=== PATIENT | female | born 1995 | race African-American/Black ===

== ENCOUNTER 2021-05-02 12:19 | Outpatient (CLI) | payer BC, MEDICAID, SELFPAY ==
--- NOTE | ~2021-05-02 | US_ITS ---
US OB follow up DATE: 05/02/2021 16:40 INDICATION: Inconclusive viability on clinical examination TECHNIQUE: Real-time imaging and Doppler analysis COMPARISON: None FINDINGS: Live fontana intrauterine gestation gestation, fetus in variable position, transverse lie . Fundal placenta. Subjectively normal amount of amniotic fluid. heart rate of 135 bpm. Biparietal diameter 4.26 cm; 18 weeks 6 days Head circumference 15.99 cm; 18 weeks 6 days Abdominal circumference 13.88 cm; 19 weeks 2 days Femur length 2.86 cm; 18 weeks 5 days Composite age by Hadlock formula is 19 weeks +/- 1 week 2 days. MAHI: 09/26/2021 Estimated weight is 269.45 +/- 40.42 g Head circumference/abdominal circumference 1.15, within normal range of 1.09-a 1.26 Femur length/head circumference 17.85, within normal range of 16.10-18.30 IMPRESSION: Composite age is 19 weeks +/- 1 week 2 days; MAHI 09/26/2021 Reviewed, dictated and finalized at [facility]. Reviewed, dictated and finalized at location [facility].
[2021-05-02 13:00] LABS: Basophils Percent Auto 0.2 % (0.2-1.2); Eosinophils Percent Auto 0.7 % (0-4.4); Hematocrit 28.9 % (37.0-47.0); Hemoglobin 9.3 g/dL (12.0-15.0); Immature Granulocyte Absolute 0.02 K/mm3 (0.00-0.031); Immature Granulocyte Percent A 0.4 % (0-0.5); Lymphocytes Absolute Auto 0.73 K/mm3 (0.9-3.2); Lymphocytes Percent Auto 13.3 % (18.3-44.2); Mean Corpuscular HGB Conc 32.2 g/dl (32-36); Mean Corpuscular Hemoglobin 26.3 pg (26-34); Mean Corpuscular Volume 81.9 fl (80-100); Mean Platelet Volume 10.3 fl (7.4-10.4); Monocytes Absolute Auto 0.5 K/mm3 (0.1-0.6); Monocytes Percent Auto 8.4 % (2.6-8.5); Neutrophils Absolute Auto 4.2 K/mm3 (1.3-6.7); Platelet Count Result 242 k/mm3 (150-375); Red Blood Count 3.53 M/mm3 (4.2-5.4); Red Cell Distribution Width 14.3 % (11.5-14.5); White Blood Count 5.5 K/mm3 (4.5-10.0)
[2021-05-02 14:03] LABS: Vitamin D 25 Hydroxy 23.2 ng/mL
[2021-05-02 14:28] LABS: Hepatitis B Surface Antigen Negative (Negative)
[2021-05-02 14:36] LABS: Hepatitis C Virus Antibody Negative (Negative)
[2021-05-02 17:34] LABS: Rubella IgG Antibody > 120.0 IU/ML
[2021-05-02 19:03] LABS: HIV 1/2 Ab P24 Ag Result Negative (Negative)
[2021-05-06 17:17] LABS: Varicella IgG Antibody >4000.00 Index (>=165.00)
[2021-05-06 17:59] LABS: Hematocrit 30.6 % (35.0-45.0); Hemoglobin 9.5 g/dL (11.7-15.5); MCH 26.7 pg (27.0-33.0); RDW 15.9 % (11.0-15.0); Red Blood Cell Count 3.56 Mill/uL (3.80-5.10)
[2021-05-08 09:20] LABS: Rapid Plasma Reagin Non-Reactive (NonReactive)
[2021-05-10 14:13] LABS: CF Result NEGATIVE (NEGATIVE)
== END 2021-05-02 12:20 | disposition home or self-care (01) ==
PROVIDERS: Visit Provider Student in an Organized Health Care Education/Training Program
DX: Z36.89 Encounter for other specified antenatal screening (principal); Z3A.19 19 weeks gestation of pregnancy
CPT/HCPCS: 36415; 76816; 81220; 81243; 82306; 83021; 84443; 85025; 86592; 86703; 86762; 86787; 86803; 86850; 86880; 86900; 86901; 86902; 87340; G0432

== ENCOUNTER 2021-06-27 13:59 | Outpatient (CLI) | payer BC, MEDICAID, SELFPAY ==
[2021-06-27 15:24] LABS: Basophils Percent Auto 0.2 % (0.2-1.2); Eosinophils Percent Auto 0.8 % (0-4.4); Hematocrit 28.9 % (37.0-47.0); Hemoglobin 8.9 g/dL (12.0-15.0); Immature Granulocyte Absolute 0.02 K/mm3 (0.00-0.031); Immature Granulocyte Percent A 0.4 % (0-0.5); Lymphocytes Absolute Auto 0.73 K/mm3 (0.9-3.2); Lymphocytes Percent Auto 15.3 % (18.3-44.2); Mean Corpuscular HGB Conc 30.8 g/dl (32-36); Mean Corpuscular Hemoglobin 25.5 pg (26-34); Mean Corpuscular Volume 82.8 fl (80-100); Mean Platelet Volume 9.7 fl (7.4-10.4); Monocytes Absolute Auto 0.5 K/mm3 (0.1-0.6); Monocytes Percent Auto 10.3 % (2.6-8.5); Neutrophils Absolute Auto 3.5 K/mm3 (1.3-6.7); Platelet Count Result 194 k/mm3 (150-375); Red Blood Count 3.49 M/mm3 (4.2-5.4); Red Cell Distribution Width 14.4 % (11.5-14.5); White Blood Count 4.8 K/mm3 (4.5-10.0)
[2021-06-27 15:46] LABS: Glucose 1 Hour PP 50gm Dose 75 mg/dL
== END 2021-06-27 14:00 | disposition home or self-care (01) ==
PROVIDERS: Visit Provider Student in an Organized Health Care Education/Training Program
DX: Z34.90 Encounter for supervision of normal pregnancy, unspecified, unspecified trimester (principal)
CPT/HCPCS: 36415; 82947; 85025

== ENCOUNTER 2021-08-01 14:45 | Outpatient (CLI) | payer BC, MEDICAID, SELFPAY ==
[2021-08-01 15:15] LABS: Basophils Percent Auto 0.2 % (0.2-1.2); Eosinophils Absolute Auto 0.1 K/mm3 (0-0.3); Eosinophils Percent Auto 1.4 % (0-4.4); Hematocrit 29.6 % (37.0-47.0); Hemoglobin 9.3 g/dL (12.0-15.0); Immature Granulocyte Absolute 0.03 K/mm3 (0.00-0.031); Immature Granulocyte Percent A 0.7 % (0-0.5); Lymphocytes Absolute Auto 0.68 K/mm3 (0.9-3.2); Lymphocytes Percent Auto 16.2 % (18.3-44.2); Mean Corpuscular HGB Conc 31.4 g/dl (32-36); Mean Corpuscular Hemoglobin 25.7 pg (26-34); Mean Corpuscular Volume 81.8 fl (80-100); Mean Platelet Volume 10.2 fl (7.4-10.4); Monocytes Absolute Auto 0.4 K/mm3 (0.1-0.6); Monocytes Percent Auto 9.1 % (2.6-8.5); Neutrophils Percent Auto 72.4 % (45.5-73.1); Platelet Count Result 210 k/mm3 (150-375); Red Blood Count 3.62 M/mm3 (4.2-5.4); Red Cell Distribution Width 19.2 % (11.5-14.5); White Blood Count 4.2 K/mm3 (4.5-10.0)
[2021-08-01 16:06] LABS: HIV 1/2 Ab P24 Ag Result Negative (Negative)
[2021-08-04 06:11] LABS: Rapid Plasma Reagin Non-Reactive (NonReactive)
== END 2021-08-01 14:46 | disposition home or self-care (01) ==
LOC: ANHLAB 14:47
PROVIDERS: Visit Provider Student in an Organized Health Care Education/Training Program
DX: Z34.90 Encounter for supervision of normal pregnancy, unspecified, unspecified trimester (principal)
CPT/HCPCS: 36415; 85025; 86592; 86703; G0432

== ENCOUNTER 2021-09-02 16:30 | Outpatient (RCR) | payer MEDICAID, SELFPAY ==
--- NOTE | 2021-08-20 09:19 | PTOPEVAL ---
PHYSICAL THERAPY EVALUATION AND PLAN OF CARE Thank you for referring Glory Mackenzie to [facility] The patient is scheduled to be seen for therapy? 1x/week for 3 weeks. Please review, sign, date and return this plan of care BERTHA. I agree with and certify that the following plan of care is medically necessary. Referring Physician Date Attending Provider: Anton Stuart MD Evaluation Diagnosis right peroneal tendonitis Onset 5weeks Subjective Information Reports that pain started Query Text:As Reported By Patient/ about a month ago. She is Family having pain in the right ankle (points to lateral malleolus and peroneal tendons) and states sometimes the heel. 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 States that working for several hours can cause increase pain in the ankle. Self Report Pain Assessment Right Ankle(s) Reported Pain Level 4 Pain Description Aching,Tightness Lowest Pain Intensity 2 Greatest Pain Intensity 8 Pain Aggravating Factors Stair Climbing,Walking,Weight Bearing/Standing Other Pain Aggravating Factors going down stairs Pain Score Pain Score 4: Self Report Interventions Used Interventions Used By Clinicians Exercise,Joint Mobilization Pain Relief Interventions Used By Inactivity/Rest Patient Lower Extremity Range of Motion Ankle/Foot Range of Motion Left Ankle Dorsiflexion With Knee Flexed 10 Range of Motion - Active Ankle Eversion Range of Motion - Active 20 Ankle Inversion Range of Motion - Active 40 Right Ankle Dorsiflexion With Knee Flexed -1 Range of Motion - Active Ankle Eversion Range of Motion - Active 15 Ankle Inversion Range of Motion - Active 20 Lower Extremity Muscle Strength Testing Ankle Strength Right Ankle Dorsiflexion Strength 4- Good - Ankle Eversion Strength 3+ Fair + Ankle Inversion Strength 3+ Fair + Ankle Strength Comments pain to isometric MMT Palpation Assessment Palpation Palpation decreased mobility of talo- crural joint Stair Climbing Assessment Stair Climbing Assessment Stair Climbing Assistive Devices Railings Technique Alternating Steps,Single Steps Stair Climbing Direction Both Up and Down Stair Climbing Comments educated and worked together on walking down the stairs leading with right foot to
--- NOTE | 2021-08-26 15:09 | PCPTNOTE ---
Patient did not show for appointment this date. Called and left voicemail with future visit time and date.
--- NOTE | 2021-09-15 11:18 | PCPTNOTE ---
Patient called & cancelled scheduled appointment this date. She does not plan to reschedule because she is going to be induced into labor this week.
--- NOTE | 2021-09-15 11:19 | PCPTNOTE ---
PHYSICAL THERAPY DISCHARGE NOTE Attending Provider: Anton Stuart MD Patient:Glory Mackenzie Date of :1995 Patient has not returned for any further treatments since 09/02/2021, therefore will be discharged at this time. Patient?s initial visit was on 08/20/2021 and had a total of 2 visits. She called and stated that she will not reschedule her appointments as she is going to be having her baby soon. Thank you for referring this patient to [facility]. Please review, sign, date and return this discharge summary BERTHA. I have been updated about the patient's current status and I agree with discharge from the above service at this time. Referring Physician Date
== END 2021-09-16 08:50 | disposition home or self-care (01) ==
LOC: ANHPT 16:30
PROVIDERS: PCP Student in an Organized Health Care Education/Training Program; Visit Provider Orthopaedic Surgery
DX: M76.71 Peroneal tendinitis, right leg (principal)
CPT/HCPCS: 97110; 97140; 97161

== ENCOUNTER 2021-09-17 15:23 | Outpatient (CLI) | payer MEDICAID, SELFPAY ==
[2021-09-17 15:59] LABS: Hemoglobin 10.6 g/dL (12.0-15.0); Mean Corpuscular HGB Conc 33.1 g/dl (32-36); Mean Corpuscular Volume 81.6 fl (80-100); Mean Platelet Volume 9.4 fl (7.4-10.4); Platelet Count Result 171 k/mm3 (150-375); Red Blood Count 3.92 M/mm3 (4.2-5.4); Red Cell Distribution Width 17.9 % (11.5-14.5); White Blood Count 4.2 K/mm3 (4.5-10.0)
[2021-09-18 13:59] LABS: Rapid Plasma Reagin Non-Reactive (NonReactive)
== END 2021-09-17 15:24 | disposition home or self-care (01) ==
LOC: ANHLAB 15:27
PROVIDERS: Visit Provider Student in an Organized Health Care Education/Training Program
DX: O34.211 Maternal care for low transverse scar from previous cesarean delivery (principal); Z3A.39 39 weeks gestation of pregnancy
CPT/HCPCS: 36415; 81479; 85027; 86592; 86850; 86870; 86880; 86900; 86901; 86902; 86905; 86970; 86971; 86978

== ENCOUNTER 2021-09-18 07:15 | Inpatient (IN) | payer BC, SELFPAY ==
--- NOTE | 2021-08-25 14:12 | PC.NURSE ---
PATIENT STATES SHE IS A REPEAT C/S ON EITHER 09/18/21 OR 09/19/21 WITH TUBAL LIGATION. INFORMED PATIENT DR TAPIA HAS NOT SCHEDULED HER C/S YET. PATIENT STATES DR TAPIA WAS GOING TO LET HER KNOW THIS WEEK WHEN SHE SEES HER ON THE DATE AND TIME OF HER C/S PATIENT REQUSITION FOR PRE-OP LAB DRAW AND PER-OP TEACHING DONE ON WHEN TO GET LABS DRAWN. CALLED OFFICE FOR COPY OF IDPA CNSENT FOR TUBAL LIGATION
[2021-09-18] VITALS (57 sets, daily range): BP systolic 74–224; BP diastolic 42–202; PULSE 57–207; RESP 12–18; TEMP 36.2–36.6; O2SAT 95–100; BMI 26.9
[2021-09-18] MEDS: LACTATED RINGERS 1,000 ML 125 ML IV CONT (07:58)
--- NOTE | 2021-09-18 08:03 | LDADM ---
This patient, Glory Mackenzie, was admitted to Labor/Delivery/Recovery 119 on 09/18/21 at 07:15. Plans for labor, pain management and were discussed with patient. Patient/family oriented to hospital policies and general routines including ID bracelet, bed and alarms, visiting hours, pain management, procedures, bathroom and other care routines, personal items, smoking policy, room service/diet and guest tray routines, infant security routines, and visiting hours. Patient/Family are encouraged to report perceived risks to care and to ask questions if they do not understand what they are told or what they should do. See OBIX for further documentation.
--- NOTE | 2021-09-18 08:07 | P.PNAN_ITS ---
Anes - Initial Pre Proc Eval Procedure: Operation Date: 09/18/21 09:00 Proposed Procedures p Repeat Section with Bilateral Tubal Ligation - Karen Mckee MD Date/Time: 09/18/21 08:07 Surgeon: Karen Mckee MD Pre Op Diagnosis: CSection Patient Data Age: 26 Gender: F Height: 1.59 m Weight: 68 kg Last Vital Signs Pulse 105 H 09/18/21 07:59 BP 108/60 09/18/21 07:59 Allergies Allergy/AdvReac Type Severity Reaction Status Date / Time No Known Allergies Allergy Verified 09/09/21 14:11 Home Medications Medication Instructions Recorded Confirmed Type prenat.vits,denzel,drd-taod-ketys 1 tablet PO DAILY 03/14/21 09/03/21 History ferrous sulfate 325 mg (65 mg 325 mg PO DAILY #30 tablet 05/02/21 09/03/21 Rx iron) tablet Patient hx anesthesia problems: none Family hx anesthesia problems: none Results Review: All pre-operative results and documents have been reviewed as part of the pre-operative evaluation. [facility] Past Medical History Medical History Anemia Anemia affecting Encounter for supervision of normal first in second trimester Encounter for supervision of normal in multigravida in third trimester Peroneal tendonitis Right ankle pain Vaginal bleeding during , antepartum Surgical History Surgical History History of History of elective 2015 Family History Family History Father Hypertension Mother Throat cancer Grandparent Throat cancer Other Patient's mother is Social History Social History Smoking status: Never smoker Alcohol intake: never Substance use: never Spiritual care concerns: No Anes - Eval Final PreProcedure Day of Procedure 09/18/21 08:07 Patient weight: overweight Heart: regular rate and rhythm Lungs: clear to auscultation Airway: Mallampati scale class II Neurological: alert and oriented Last oral intake: >/= 8 hours ASA classification: II Emergent: no Anesthetic plan: proceed Anesthesia type and monitoring: regional spinal and standard monitoring Results Review: All pre-operative results and documents have been reviewed as part of the pre-operative evaluation. Informed Consent: The patient's anesthetic plan and its attendant risks and benefits were discussed with the patient/family/POA. Questions were solicited and answers provided to the satisfaction of the patient/family/POA.
--- NOTE | 2021-09-18 08:32 | PM.IMHP ---
H&P: HPI History of Present Illness Date/Time: 09/18/21 08:32 Patient is a LMP 12/19/20 currently 39w gestation with MAHI 09/25/21 who presents to L&D for a scheduled repeat section. She is dated by LMP consistent with early outside US. She has a history of C/S x 2. In general, patient reports feeling well today. Denies any vaginal bleeding, leakage of fluid, or contractions. Reports good movement. Patient also desires permanent sterilization. She has been counseled regarding alternative methods of contraception and declines all other options. Chief Complaint: Intrauterine at 39w Previous section x 2 Multiparity, desires permanent sterilization Review of Systems Review of Systems: All systems reviewed & are unremarkable except as noted in HPI and below Constitutional: Constitutional: Reports as per HPI, Reports no additional constitutional complaints, Denies chills, Denies fever(s), Denies headache(s) and Denies night sweats Eyes: Eyes: Reports as per HPI and Reports no additional eye complaints ENT: Reports system reviewed and no additional complaints, except as documented, Reports as per HPI, Reports Normal hearing present and Denies headache(s) Cardiovascular: Cardiovascular: Reports as per HPI, Reports no additional cardiovascular complaints, Denies chest pain and Denies dyspnea Respiratory: Respiratory: Reports as per HPI, Reports no additional respiratory complaints, Denies cough and Denies dyspnea Gastrointestinal: Gastrointestinal: Reports as per HPI, Reports no additional gastrointestinal complaints, Denies abdominal pain, Denies change in bowel habits, Denies change in stool character, Denies nausea and Denies vomiting Genitourinary: Genitourinary: Reports no additional female genitourinary complaints, Reports as per HPI, Denies abnormal vaginal bleeding, Denies genital lesions, Denies hot flashes, Denies dyspareunia, Denies pelvic pain, Denies sexual dysfunction, Denies urinary incontinence, Denies vaginal discharge, Denies vaginal dryness and Denies vaginal odor Musculoskeletal: Musculoskeletal: Reports no additional musculoskeletal complaints and Reports as per HPI Neurologic: Reports system reviewed and no additional complaints, except as documented, Reports as per HPI, Reports Normal hearing present and Denies headache(s) Psychiatric: Psychiatric: Reports no additional psychiatric complaints, Reports as per HPI, Denies anxiety and Denies depression Endocrine: Endocrine: Reports no additional endocrine complaints and Reports as per HPI Hematologic/Lymphatic: Hematologic/Lymphatic: Reports no additional hematologic/lymphatic complaints and Reports as per HPI Allergic/Immunologic: Allergic/Immunologic: Reports no additional allergic/immunologic complaints and Reports as per HPI PMF Past Medical History Medical History Anemia Anemia affecting Encounter for supervision of normal first in second trimester Encounter for supervision of normal in multigravida in third trimester Peroneal tendonitis Right ankle pain Vaginal bleeding during , antepartum Surgical History Surgical History History of History of elective 2015 Family History Family History Father Hypertension Mother Throat cancer Grandparent Throat cancer Other Patient's mother is Social History Social History Smoking status: Never smoker Alcohol intake: never Substance use: never Spiritual care concerns: No Meds Home Medications and Allergies Home Medications Medication Instructions Recorded Confirmed Type prenat.vits,denzel,zxn-ssiw-utusw 1 tablet PO DAILY 03/14/21 09/03/21 History ferrous sulfate 325 mg (65
--- NOTE | 2021-09-18 08:46 | WPDHPUPDATE1 ---
History and Physical Update Update Date/Time: 09/18/21 08:46 History and Physical has been reviewed, including an updated exam of the patient. There are NO changes in the patient's condition. Risks, benefits, and alternatives have been discussed and questions answered. Patient agrees to proceed with procedure.
[2021-09-18] MEDS: LACTATED RINGERS 1,000 ML 999 ML IV CONT (08:47)
--- NOTE | 2021-09-18 08:47 | W.PM.PROC2 ---
Procedure Note - Detailed Date of Procedure 09/18/21 Pre-op Diagnosis Intrauterine at 39w gestation Previous section x 2 Multiparity, desires permanent sterilization Post-op Diagnosis same Procedure Performed Repeat low transverse section via Pfannenstiel Bilateral partial salpingectomy (bilateral tubal ligation) via [place] method Surgeon Karen Mckee MD Furniture Finisher Fidelina Adame Anesthesia spinal Findings Live male in cephalic presentation, apgars 9/9, weighing 7 lbs 8 oz., clear amniotic fluid, normal appearing uterus, ovaries, and fallopian tubes bilaterally Description of Procedure The patient was taken to the operating room, where she self-transferred to the operating room table. Spinal anesthesia was administered and found to be adequate. The patient was placed in dorsal supine position with a leftward tilt. She was prepped and draped in the usual sterile fashion. Spinal anesthesia was tested and found to be adequate. A Pfannenstiel skin incision was made with a scalpel and carried through to underlying layer of fascia with the Bovie. The fascia was incised in the midline and the incision was extended laterally with the use of forceps and Park scissors. The inferior aspect of the fascial incision was grasped with Sandhya clamps, elevated, and the underlying rectus muscle were dissected off with Park scissors. Attention was then turned to the superior aspect of the fascial incision, which in a similar manner, was grasped with Sandhya clamps, elevated, and the underlying rectus muscles were also dissected off with Park scissors. The rectus muscles were in the midline and the peritoneal cavity was entered bluntly. This incision was extended superiorly and inferiorly with good visualization of the bladder and care was taken to avoid blood vessels. A bladder blade was inserted. The vesicouterine peritoneum was identified and incised sharply with Metzenbaum scissors. This incision was extended laterally with Metzenbaum scissors and a bladder flap was created digitally. The bladder blade was replaced. A low-transverse uterine incision was made with a scalpel. This incision was extended laterally with bandage scissors. Amniotomy was performed. Clear amniotic fluid was noted. The infant's head was grasped and gently guided to the level of the uterine incision. The infant's head was delivered easily and atraumatically without difficulty followed by the neck, shoulders, and rest of body with gentle fundal pressure. The infant's nose and mouth were suctioned with bulb suction. The infant was crying spontaneously. Infant was also noted to void spontaneously. The cord was clamped and cut and the infant was handed off to awaiting nursing staff. A segment of cord was collected for cord gases. Cord blood was also collected. The placenta was then delivered manually with gentle uterine massage. Uterus was exteriorized and cleared of all clots and debris. The uterine incision was reapproximated with 0 Vicryl in a running, locked fashion. A second imbricating layer using 0 Monocryl performed. Excellent hemostasis was noted. On inspection, the uterus, ovaries, and fallopian tubes appeared to be normal bilaterally. Attention was then turned to the left fallopian tube, which was identified and followed through to the fimbriated end. The tube was grasped with a [place] clamp and elevated. With the use of Bovie, a window was created in the mesosalpinx just beneath the tube. Four free ties using 2-0 plain suture were used to create an intervening segment of tube. Two sutures were placed on either side of the intervening segment of tube. An approximate 3cm segment of intervening tube was then excised with Metzenbaum scissors. The excised portion of the tube was handed off the field to be sent to pathology for analysis. The tubal stumps were cauterized and excellent hemostasis was noted. In a similar manner, attention was turned to the right fallopian
[2021-09-18] MEDS: ceFAZolin 2 GM/D5W 50 ML 2 GM/50 ML BAG IVPB (08:59)
--- NOTE | 2021-09-18 10:47 | PM.OBPRVD ---
OB - Delivery Note Procedure Delivery date: 09/18/21 Procedure: Procedures Operation Date: 09/18/21 09:00 Actual Procedure Side Surgeon p Repeat Section with Bilateral Tubal Ligation Karen Mckee MD events: Previous Intrapartal events: None Route of delivery: Specimen: Yes (portion of left and right fallopian tubes) Quantitative Blood Loss (ml): 105 Anesthesia type: Spinal Disposition: PACU Complications: No immediate complications Baby Date of : 09/18/21 Time of : 09:26 Weeks of gestation at delivery: 39 gender: Male Weight (pounds): 7 Weight (ounces): 8 presentation: vertex Placenta delivery description: Manual Removal cord vessel description: 3 Vessels and Nuchal Cord (x1) score one minute: 9 score five minutes: 9
[2021-09-18] MEDS: MORPHINE SULFATE INJ (*CRX) 10 MG/ML AMP 3 MG IV PUSH ×4 (10:55→12:38)
[2021-09-18] MEDS: OXYTOCIN 30 UNITS/NS 500 ML 30 UNITS/500 ML BAG 125 UNITS IV CONT (11:11)
--- NOTE | 2021-09-18 12:55 | PC.NURSE ---
Patient transferred to post room #287 via [id number]. Support person present. Oriented to unit, room, information board, rooming in, admission packet and security measures. Patient verbalizes understanding.
[2021-09-18] MEDS: DEXTROSE 5%/0.45% SOD CHL 1,000 ML 125 ML IV CONT (15:21)
[2021-09-18] MEDS: KETOROLAC 30 MG/ML VIAL (*BKC) IV PUSH (15:22)
[2021-09-18] MEDS: DOCUSATE SODIUM 100 MG CAPSULE PO (18:03)
[2021-09-18] MEDS: HYDROcodone/acetaminophen (*CRX) 5-325 MG TABLET 1 TAB PO ×2 (18:03→23:00)
[2021-09-18] MEDS: ONDANSETRON INJ 4 MG/2 ML VIAL IV PUSH (18:40)
[2021-09-18] MEDS: IBUPROFEN 600 MG TABLET PO (23:00)
[2021-09-18] MEDS: SIMETHICONE 80 MG TAB.CHEW PO (23:01)
[2021-09-19] VITALS: BP 92/37; PULSE 74; RESP 16; RESP 18; TEMP 36.2; O2SAT 100
[2021-09-19 04:00] VITALS: BP 91/48; PULSE 73; RESP 18; TEMP 36.3; O2SAT 100
[2021-09-19 04:05] LABS: Basophils Percent Auto 0.1 % (0.2-1.2); Eosinophils Absolute Auto 0.1 K/mm3 (0-0.3); Eosinophils Percent Auto 1.7 % (0-4.4); Hematocrit 30.1 % (37.0-47.0); Hemoglobin 9.9 g/dL (12.0-15.0); Immature Granulocyte Absolute 0.03 K/mm3 (0.00-0.031); Immature Granulocyte Percent A 0.4 % (0-0.5); Lymphocytes Percent Auto 9.7 % (18.3-44.2); Mean Corpuscular HGB Conc 32.9 g/dl (32-36); Mean Corpuscular Hemoglobin 26.9 pg (26-34); Mean Corpuscular Volume 81.8 fl (80-100); Mean Platelet Volume 9.1 fl (7.4-10.4); Monocytes Absolute Auto 0.4 K/mm3 (0.1-0.6); Monocytes Percent Auto 5.1 % (2.6-8.5); Platelet Count Result 148 k/mm3 (150-375); Red Blood Count 3.68 M/mm3 (4.2-5.4); Red Cell Distribution Width 17.4 % (11.5-14.5); White Blood Count 7.2 K/mm3 (4.5-10.0)
[2021-09-19] MEDS: IBUPROFEN 600 MG TABLET PO ×2 (05:30→13:48)
[2021-09-19] MEDS: HYDROcodone/acetaminophen (*CRX) 10-325 MG TABLET 1 TAB PO ×4 (05:32→17:08)
[2021-09-19 08:15] VITALS: BP 99/50; PULSE 91; RESP 18; TEMP 36.3; O2SAT 100
[2021-09-19] MEDS: DOCUSATE SODIUM 100 MG CAPSULE PO ×2 (09:44→17:07)
[2021-09-19] MEDS: MULTIVIT/MIN/PREN/FOL AC/IRON TABLET 1 TAB PO (09:44)
[2021-09-19] MEDS: POLYSACCHARIDE IRON COMPLEX 150 MG CAPSULE PO ×2 (09:44→17:07)
[2021-09-19] MEDS: SIMETHICONE 80 MG TAB.CHEW PO ×3 (09:45→17:08)
--- NOTE | 2021-09-19 10:01 | WPDANLDPN2 ---
Anes-Prog Note L&D Date/Time: 09/19/21 10:01 Comfortable throughout: section Neuraxial method: spinal Epidural/Spinal procedure site: clean & non-tender Neuro status: Neuro function grossly intact. Cardiovascular status: normal Respiratory status: normal Airway patency: baseline Mental status: baseline Post-Op hydration status: normal Vital Signs: Last Vital Signs Temp 36.3 C L 09/19/21 04:00 Pulse 73 09/19/21 04:00 Resp 18 09/19/21 04:00 BP 91/48 L 09/19/21 04:00 Pulse Ox 100 09/19/21 04:00 Pain score (VAS): 3 I/O: Intake & Output 09/18/21 09/19/21 09/19/21 23:59 07:59 15:59 Intake Total 900 Output Total 2825 Balance -1925 Post-procedural complaints: none Patient feedback: Patient satisfied with anesthetic care.
--- NOTE | 2021-09-19 10:01 | WPDANLDNPN2 ---
Anes-Prog Note L&D-Neuraxial Date/Time: 09/19/21 10:01 Neuraxial medications: intrathecal PF morphine Opiod-related complaints: none Patient feedback: Patient satisfied with post-operative pain management.
--- NOTE | 2021-09-19 10:46 | PM.OBPNVD ---
OB - PN: Subj Subjective Date/time seen: 09/19/21 10:46 Patient doing well. Pain reasonably controlled with medication. Reported N/V yesterday, however, currently resolved. Denies any headache, chest pain, or SOB. Tolerating PO diet. Ppier catheter removed this AM. Has voided once since removal. No flatus yet. Ambulating without difficulty. OB - PN: Obj Data Labs CBC & Chem 7: 09/19/21 03:48 Labs: Laboratory Results - last 24 hr 09/19/21 03:48 WBC 7.2 RBC 3.68 L Hgb 9.9 L Hct 30.1 L MCV 81.8 MCH 26.9 MCHC 32.9 RDW 17.4 H Plt Count 148 L MPV 9.1 Immature Gran % (Auto) 0.4 Neut % (Auto) 83.0 H Lymph % (Auto) 9.7 L Garfield % (Auto) 5.1 Eos % (Auto) 1.7 Baso % (Auto) 0.1 L Lymph # (Auto) 0.70 L Garfield # (Auto) 0.4 Eos # (Auto) 0.1 Baso # (Auto) 0.0 Abs Immat Gran (auto) 0.03 Absolute Neuts (auto) 6.0 Absolute Nucleated RBC 0.0 Nucleated RBC % 0.0 OB - PN A/P Assessment and Plan (1) Delivery by section using transverse incision of lower segment of uterus: Code(s): O82 - Encounter for delivery without indication Status: Acute Assessment and Plan: POD#1 doing well continue routine postoperative care encourage ambulation and use of IS Time Spent With Patient Time: Total time spent is greater than 50% in coordination of care (as documented) at patient's floor/unit and/or counseling patient: Exam Const: General: cooperative, healthy appearing, comfortable and no acute distress GI: Inspection: non-distended GI Palp: Yes Soft to palpation and No Tenderness to palpation present (GI) Other: inc covered with bandage, bandage c/d/i; fundus firm below umbilicus Extrem: Right lower extremity: no edema Left lower extremity: no edema Other: no calf tenderness
--- NOTE | 2021-09-19 11:29 | PC.NURSE ---
0855 - Mother verbalizes she is able to independently latch with appropriate positioning/alignment. She denies any nipple discomfort, is feeding as required and waking infant to feed if needed. is currently meeting outcomes for weight, output, jaundice and feeding frequencies. Mother states she does not require feeding assist/education at this time. Reviewed resources in the Mom/Baby guide. Instructed mother to call out for future feedings if assistance is needed.
[2021-09-19 19:13] VITALS: BP 101/45; PULSE 88; RESP 20; TEMP 36.8; O2SAT 98
[2021-09-20] MEDS: HYDROcodone/acetaminophen (*CRX) 10-325 MG TABLET 1 TAB PO (00:19)
[2021-09-20] MEDS: IBUPROFEN 600 MG TABLET PO ×3 (00:20→16:45)
[2021-09-20] MEDS: SIMETHICONE 80 MG TAB.CHEW PO ×3 (00:20→16:45)
[2021-09-20 07:58] VITALS: BP 114/58; PULSE 78; RESP 16; TEMP 36.6; O2SAT 100
[2021-09-20] MEDS: HYDROcodone/acetaminophen (*CRX) 5-325 MG TABLET 1 TAB PO ×3 (08:03→16:46)
[2021-09-20] MEDS: POLYSACCHARIDE IRON COMPLEX 150 MG CAPSULE PO ×2 (08:03→16:45)
[2021-09-20] MEDS: MULTIVIT/MIN/PREN/FOL AC/IRON TABLET 1 TAB PO (08:03)
[2021-09-20] MEDS: DOCUSATE SODIUM 100 MG CAPSULE PO ×2 (08:06→16:45)
--- NOTE | 2021-09-20 10:37 | PM.OBPNVD ---
OB - PN: Subj Subjective Date/time seen: 09/20/21 10:37 Patient comments: no complaints, pain well controlled, tolerating diet, flatus present and other (Ambulating and voiding without problems. Lochia similar to menses) baby status: doing well OB - PN: Obj Data Labs CBC & Chem 7: 09/19/21 03:48 OB - PN A/P Plan day: 2 (s/p C section, doing well) Plan: routine care Comments: Possible discharge tomorrow. She is having gas pain and was encouraged to ambulate more. Her is in the reserves and is gone this weekend, so she doesn't have much help at home today or early tomorrow Time Spent With Patient Time: Total time spent is greater than 50% in coordination of care (as documented) at patient's floor/unit and/or counseling patient: Time with patient: less than 15 minutes Exam Const: General: no acute distress Resp: Auscultation: clear to auscultation bilaterally Cardio: Rate: regular rate Rhythm: regular rhythm GI: Inspection: non-distended, incision (Intact without erythema, drainage, or induration) and other (Fundus firm and nontender below umbilicus) GI Palp: Yes abdominal tenderness (appropriate) and Yes Soft to palpation Extrem: General: no edema
[2021-09-20 19:19] VITALS: BP 111/62; PULSE 82; RESP 16; TEMP 36.6; O2SAT 99
[2021-09-21] MEDS: HYDROcodone/acetaminophen (*CRX) 5-325 MG TABLET 1 TAB PO ×3 (00:12→15:29)
[2021-09-21] MEDS: SIMETHICONE 80 MG TAB.CHEW PO ×2 (00:12→07:57)
[2021-09-21] MEDS: IBUPROFEN 600 MG TABLET PO ×3 (00:12→15:30)
[2021-09-21] MEDS: MULTIVIT/MIN/PREN/FOL AC/IRON TABLET 1 TAB PO (08:01)
[2021-09-21] MEDS: DOCUSATE SODIUM 100 MG CAPSULE PO (08:01)
[2021-09-21] MEDS: POLYSACCHARIDE IRON COMPLEX 150 MG CAPSULE PO (08:01)
[2021-09-21 08:05] VITALS: BP 120/62; PULSE 70; RESP 18; TEMP 36.4
[2021-09-21 08:30] VITALS: PULSE 70; RESP 18; O2SAT 99
--- NOTE | 2021-09-21 10:06 | PM.OBPNVD ---
OB - PN: Subj Subjective Date/time seen: 09/21/21 10:06 Patient comments: no complaints, pain well controlled, tolerating diet, flatus present and other (Lochia less than menses. Ambulating and voiding without problems) baby status: doing well OB - PN: Obj Data Labs CBC & Chem 7: 09/19/21 03:48 OB - PN A/P Plan day: 3 (s/p section, doing well and ready to be discharged home) Plan: routine care, discharge home and other (Follow up in office in 1 week) Time Spent With Patient Time: Total time spent is greater than 50% in coordination of care (as documented) at patient's floor/unit and/or counseling patient: Exam Const: General: no acute distress Resp: Auscultation: clear to auscultation bilaterally Cardio: Rate: regular rate Rhythm: regular rhythm GI: Inspection: non-distended, incision (Intact without erythema, drainage, or induration) and other (Fundus firm and nontender below umbilicus) GI Palp: Yes abdominal tenderness (appropriate) and Yes Soft to palpation Extrem: General: no edema
--- NOTE | 2021-09-21 10:06 | PM.OBDSVD ---
DS: Admitting Diagnosis Discharge Date 09/21/2021 Admitting Diagnosis repeat C/S, desires sterilization DS: Discharge Diagnosis Discharge Diagnosis (1) Delivery by section using transverse incision of lower segment of uterus: Code(s): O82 - Encounter for delivery without indication Status: Acute (2) Encounter for sterilization: Code(s): Z30.2 - Encounter for sterilization Status: Acute OB - DS: Summary OB Procedures : None OB Procedures Intrapartum: and Tubal ligation OB Procedures: : None Peripartum Data Infant Delivery Method: Section Procedures: Procedures Operation Date: 09/18/21 09:00 Actual Procedure Side Surgeon p Repeat Section with Bilateral Tubal Ligation Karen Mckee MD complications: none Status at Discharge Functional status at discharge: independent ambulation Overall status at discharge: patient is progressing back to baseline Time Spent with Patient Time attestation: Total time spent providing and/or coordinating discharge services: Time spent: Less than 30 minutes DS: Data Data Completed and Pending Completed studies during hospitalization: Pending at discharge 09/18/21 09:49 Surgical [PTH] Routine Discharge Plan Discharge Attending physician on discharge: chandra Discharging Clinician: Susanne Curry Patient Disposition: Home, Self-Care Activity: may shower and pelvic rest Diet: as tolerated Wound Care Instructions: incision open to air Discharge Instructions: Education: Mom and Baby Guide Given to: Mother Follow-Up: Call your delivering provider's office for an appointment to be seen in: 1 Week for incision check and then 4-6 weeks for exam Mom and baby should come to the [facility] for the follow-up appointment. Appointment Date/Time: September 22, 2021 at 8:00 am What to expect at your follow-up visit: Blood Pressure Check Physical Assessment Call [phone] if you are unable to keep your appointment time. BREAST CARE: * Wear a snug supportive bra. * For engorgement discomfort: Breast Feeding: * Apply warm moist washcloths * Express milk as needed to relieve engorgement * Wear loose clothing Bottle Feeding: * May apply ice packs * For sore nipples: * Identify correct latch-on * Apply warm moist washcloths before and after nursing * Air dry nipples after nursing * May apply Lansinoh cream to nipples ABDOMINAL INCISION: (if applicable) * Allow incision to air dry * Do NOT use lotions for powders on your incision * When showering, allow soap and water to run over the incision, but do not wash incision EPISIOTOMY/PERINEAL CARE: * Until bleeding stops, use your karina bottle after urinating * Change your pad frequently throughout the day * No tub baths until seen by your physician - You may shower ACTIVITY: * Rest as much as possible. * Do not exercise or lift anything heavier than your baby (such as laundry or other children.) * Avoid stairs or driving as much as possible. * Do not put anything into the vagina. No douching, tampons, or sexual activity until seen by physician. NOTIFY PHYSICIAN IF YOU HAVE ANY QUESTIONS OR IF ANY OF THE FOLLOWING SYMPTOMS OCCUR: * If your incision becomes red, swollen, or more painful than what you have experienced in the hospital. * If your vaginal bleeding becomes foul smelling. * If your vaginal bleeding becomes more heavy than a period or if your bleeding changes from the color it is now to bright crayon red . However, you may pass an occasional walnut-sized clot once or twice for the first week . * If you experience a sharp, shooting pain in your calves. * If you discover a hard, reddened area on your breast or if you experience flu-like symptoms. DIET: * Eat regular, well-ba
== END 2021-09-21 15:20 | disposition home or self-care (01) | DRG 540 ==
LOC: ANHOB2 09-21 11:27 → ANHLDR 09-23 11:42 → ANHOB2 09-23 11:42
PROVIDERS: Admitting Provider Student in an Organized Health Care Education/Training Program; Visit Provider Obstetrics & Gynecology
PROC: 10D00Z1 Extraction of Products of Conception, Low, Open Approach (ICD-10-PCS; CPT 59514; principal; 2021-09-18 09:00)
DX: O34.219 Maternal care for unspecified type scar from previous cesarean delivery (principal); Z30.2 Encounter for sterilization; O69.81X0 Labor and delivery complicated by cord around neck, without compression, not applicable or unspecified; Z3A.39 39 weeks gestation of pregnancy; Z37.0 Single live birth
CPT/HCPCS: 36415; 85025; 88302; A9270; J0131; J0690; J1885; J2270; J2274; J2405; J2590; J7120

== ENCOUNTER 2021-10-08 21:26 | Emergency (ER) | payer MEDICAID, SELFPAY ==
[2021-10-08 21:29] VITALS: BP 118/64; PULSE 51; RESP 18; TEMP 36.6; O2SAT 99
--- NOTE | 2021-10-08 22:57 | PC.NURSE ---
patient states I'm just going to leave. Advised to stay and see provider walked out
== END 2021-10-08 23:14 | disposition left against medical advice (07) ==
DX: O90.2 Hematoma of obstetric wound (principal)
CPT/HCPCS: 99199